=== PATIENT | female | born 2000 | race Caucasian/White ===

== ENCOUNTER 2020-06-16 03:54 | Emergency (ER) | payer BC ==
[~2020-06-16] VITALS: Ht 165.1 cm; Wt 72.6 kg
[2020-06-16] MEDS ORDERED: LORATADINE (CLARITIN) 10 MG TAB PO ONE (05:00)
[2020-06-16] MEDS ORDERED: FAMOTIDINE 20 MG (PEPCID) TABLET PO ONE (05:00)
[2020-06-16] MEDS ORDERED: FAMOTIDINE 20MG/2ML IV (PEPCID) IVP ONE (05:00)
--- NOTE | 2020-06-16 05:01 | ED Integumentary General ---
General Chief Complaint: Allergic Reaction Stated Complaint: HIVES Nursing Triage Note: TO ED VIA POV AND AMBULATORY TO ROOM 3 WITH C/O HIVES TO ARMS AND LEGS THAT STARTED APPROX 1H COMPLIANCE DIRECTOR AND 10MIN COMPLIANCE DIRECTOR FELT LIKE MOUTH WAS SWELLING. NO ANTIHISTAMINES TAKEN COMPLIANCE DIRECTOR, DID NOT USE EPI PEN. Source: patient Exam Limitations: no limitations History of Present Illness Date Seen by Provider: Jun 16, 2020 Time Seen by Provider: 04:07 Initial Comments This 19-year-old young lady presents to the emergency room with concerns about hives that she developed about an hour ago. She had a sensation of throat/mouth swelling about 10 minutes prior to arrival that has now subsided. Hives also have been improving. She did not administer her EpiPen. 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 She denies any known exposure to tree nuts clear diet. Allergies and Home Medications Allergies Coded Allergies: tree nut (Verified Allergy, Unknown, 06/16/20) Patient Home Medication List Home Medication List Reviewed: Yes Review of Systems Review of Systems Constitutional: no symptoms reported EENTM: see HPI Respiratory: no symptoms reported Cardiovascular: no symptoms reported Gastrointestinal: no symptoms reported Musculoskeletal: no symptoms reported Skin: no symptoms reported Psychiatric/Neurological: No Symptoms Reported Endocrine: No Symptoms Reported Hematologic/Lymphatic: No Symptoms Reported Past Jzpzrym-Mjzshg-Mfugjj Hx Past Med/Social Hx: Reviewed Nursing Past Med/Soc Hx Patient Social History Alcohol Use: Occasionally Uses Smoking Status: Current Everyday Smoker Type Used: Electronic/Vapor Recent Infectious Disease Expo: No Past Medical History Surgeries: Yes Adenoidectomy, Tonsillectomy Respiratory: Yes Asthma Cardiac: No Neurological: No Genitourinary: No Gastrointestinal: No Musculoskeletal: No Endocrine: No HEENT: No Cancer: No Psychosocial: No Integumentary: No Blood Disorders: No Physical Exam Vital Signs Vital Signs - First Documented 06/16/20 06/16/20 04:03 05:10 Temp 36.2 Pulse 112 Resp 16 B/P (MAP) 142/101 (115) Pulse Ox 97 O2 Delivery Room Air Capillary Refill : Less Than 3 Seconds General Appearance: WD/WN, no apparent distress HEENT: PERRL/EOMI, normal ENT inspection, pharynx normal Neck: normal inspection Cardiovascular: regular rate, rhythm, no edema, no murmur Respiratory: lungs clear, normal breath sounds, no respiratory distress Extremities: normal inspection, no pedal edema Neurologic/Psychiatric: alert, normal mood/affect, oriented x 3 Skin: warm/dry, rash (A few very subtle scattered hives on the extremities) Progress/Results/Core Measures Results/Orders My Orders Orders - NEGRITA QUILES MD Loratadine Tablet (Claritin Tablet) (06/16/20 05:00) Famotidine Injection (Pepcid Injection) (06/16/20 05:00) Famotidine Tablet (Pepcid Tablet) (06/16/20 05:00) Vital Signs/I&O 06/16/20 06/16/20 04:03 05:10 Temp 36.2 36.2 Pulse 112 90 Resp 16 16 B/P (MAP) 142/101 (115) 106/77 (115) Pulse Ox 97 O2 Delivery Room Air Room Air Blood Pressure Mean: 115 Progress Progress Note : Progress Note Patient was monitored for a short while. She was given Pepcid and Claritin prior to departure. See discharge instructions for discussion. Departure Impression Primary Impression: Hives Disposition: 01 HOME, SELF-CARE Condition: Improved Departure-Patient Inst. Decision time for Depature: 04:59 Patient Instructions: Hives Add. Discharge Instructions: You may take a nondrowsy antihistamine such as Claritin (loratadine), Zyrtec (cetirizine), etc. daily. Keep Benadryl (diphenhydramine) on hand to take for exacerbations of hives. Take up to 50 mg every 4 hours as needed. All of these medications are available [id number]. If you have worsening symptoms despite using these medications or if you have potentially life-threatening reactions that include swelling of the lips, throat, or tongue, return to the emergency room or call 911. Try to identify potential triggers for your hives and avoid those exposures in the future. Call the ER with questions or concerns. All discharge instructions reviewed with patient and/or family. Voiced understanding. NEGRITA QUILES MD Jun 16, 2020 05:01
[2020-06-16 05:10] VITALS: BP 106/77
== END 2020-06-16 05:12 | disposition home or self-care (01) ==
LOC: ER 03:58
DX: L50.9 Urticaria, unspecified (principal); J45.909 Unspecified asthma, uncomplicated; F17.290 Nicotine dependence, other tobacco product, uncomplicated
CPT/HCPCS: 99283

== ENCOUNTER 2020-06-18 23:04 | Emergency (ER) | payer BC ==
[~2020-06-18] VITALS: Ht 167.7 cm; Wt 72.6 kg
[2020-06-18] MEDS ORDERED: FAMOTIDINE 20MG/2ML IV (PEPCID) IV STA (23:20)
[2020-06-18] MEDS ORDERED: diphenhydrAMINE 50 MG/ML INJ (BENADRYL) IV STA (23:20)
[2020-06-18] MEDS ORDERED: methylPREDNISolone 125 MG (Solu-MEDROL) VIAL IV STA (23:20)
[2020-06-18 23:32] LABS: BASOPHILS # (AUTO) 0.1 10^3/uL (0.0-0.1); BASOPHILS % (AUTO) 1 % (0-10); EOSINOPHILS # (AUTO) 0.3 10^3/uL (0.0-0.3); EOSINOPHILS % (AUTO) 3 % (0-10); HEMATOCRIT 42 % (35-52); HEMOGLOBIN 13.6 g/dL (11.5-16.0); LYMPHOCYTES # (AUTO) 1.8 10^3/uL (1.0-4.0); LYMPHOCYTES % (AUTO) 24 % (12-44); MEAN CORPUSCULAR HEMOGLOBIN 27 pg (25-34); MEAN CORPUSCULAR HGB CONC 33 g/dL (32-36); MEAN CORPUSCULAR VOLUME 84 fL (80-99); MEAN PLATELET VOLUME 11.3 fL (9.0-12.2); MONOCYTES # (AUTO) 0.4 10^3/uL (0.0-1.0); MONOCYTES % (AUTO) 6 % (0-12); NEUTROPHILS % (AUTO) 66 % (42-75); PLATELET COUNT 224 10^3/uL (130-400); WHITE BLOOD COUNT 7.6 10^3/uL (4.3-11.0)
--- NOTE | 2020-06-18 23:32 | ED Integumentary General ---
General Stated Complaint: HIVES ALL OVER Source: patient History of Present Illness Date Seen by Provider: Jun 18, 2020 Time Seen by Provider: 23:18 Initial Comments PT ARRIVES VIA POV FROM HOME C/O GENERALIZED HIVES SINCE EARLY TUESDAY MORNING WAS AT A "FRAT FORMAL" AT [facility] ALL WEEKEND--TUESDAY THROUGH TUESDAY NIGHT HAD FOOD AND LOTS OF DRINKS SHE HAD NEVER HAD BEFORE, DRINKING FROM OTHER PEOPLE'S DRINKS, ETC. PT LIVES IN AN APARTMENT WITH ROOM MATES, BUT CLAIMS SHE HAS NOT HAD ANYTHING NEW SINCE TUESDAY NO SWELLING ANYWHERE NO DIFFICULTY BREATHING OR TALKING OR SWALLOWING NO DIZZINESS OR SYNCOPE SEEN HERE EARLY ON TUESDAY MORNING FOR THIS PROBLEM--TOLD TO TAKE CLARITIN AND BENADRYL STATES HIVES HAVE CONTINUED, AND WENT TO [facility] TODAY, AND WAS TOLD TO TAKE CLARITIN STATES SHE HAD HIVES WHEN SHE WAS VERY YOUNG, BUT NO PROBLEMS FOR MANY YEARS PT HAS ASTHMA, BUT HAS NOT HAD TO USE INHALER FOR A VERY LONG TIME. PT HAS AN ALLERGY TO TREE NUTS, AND HAS AN EPI PEN, BUT HAS NOT USED IT. [facility] [place] Allergies and Home Medications Allergies Coded Allergies: tree nut (Verified Allergy, Unknown, 06/16/20) Home Medications Famotidine 40 Mg Tablet, 40 MG PO DAILY Prescribed by: ALBINO RAHMAN on 06/18/202335 Prednisone 20 Mg Tab, 40 MG PO DAILY Prescribed by: ALBINO RAHMAN on 06/18/202335 Patient Home Medication List Home Medication List Reviewed: Yes Review of Systems Review of Systems Constitutional: no symptoms reported EENTM: no symptoms reported Respiratory: no symptoms reported Cardiovascular: no symptoms reported Gastrointestinal: no symptoms reported; No nausea, No vomiting Genitourinary: decreased output LMP: Jun 18, 2020 Musculoskeletal: no symptoms reported Skin: see HPI, pruritus, rash Psychiatric/Neurological: No Symptoms Reported Endocrine: No Symptoms Reported Hematologic/Lymphatic: No Symptoms Reported Past Uiadbyu-Zjnbja-Junpqn Hx Past Med/Social Hx: Reviewed and Corrections made Patient Social History Alcohol Use: Occasionally Uses Drug of Choice: THC IN PAST Smoking Status: Current Everyday Smoker Type Used: Electronic/Vapor Substance type: Marijuana Past Medical History Surgeries: Yes Adenoidectomy, Tonsillectomy Respiratory: Yes Asthma Cardiac: No Neurological: No : No Genitourinary: No Gastrointestinal: No Musculoskeletal: No Endocrine: No HEENT: Yes (S/P TONSILLECTOMY/ADENOIDECTOMY) Tonsilitis Cancer: No Psychosocial: No Integumentary: No Blood Disorders: No Family Medical History SOCIAL HISTORY: -ETOH "ON WEEKENDS" -DRUGS--MARIJUANA "IN THE PAST" -SMOKES "ON WEEKENDS" Physical Exam Vital Signs Vital Signs - First Documented 06/18/20 23:15 Temp 36.7 Pulse 105 Resp 18 B/P (MAP) 133/96 (108) Pulse Ox 98 O2 Delivery Room Air Capillary Refill : General Appearance: WD/WN, no apparent distress HEENT: PERRL/EOMI, normal ENT inspection Neck: normal inspection Cardiovascular: regular rate, rhythm, no murmur Respiratory: normal breath sounds, no respiratory distress, no accessory muscle use Gastrointestinal: non tender, soft Extremities: normal inspection Neurologic/Psychiatric: counseling program leader II-XII nml as tested, no motor/sensory deficits, alert, normal mood/affect, oriented x 3 Skin: normal color, rash (DIFFUSE HIVES ON ARMS., LEGS, TRUNK, ? MILD RASH ON FACE ?--HANDS/FEET/SCALP ARE SPARED. ) Progress/Results/Core Measures Results/Orders Lab Results Laboratory Tests Test 06/18/20 23:25 Range/Units White Blood Count 7.6 4.3-11.0 10^3/uL Red Blood Count 4.97 3.80-5.11 10^6/uL Hemoglobin 13.6 11.5-16.0 g/dL Hematocrit 42 35-52 % Mean Corpuscular Volume 84 80-99 fL Mean Corpuscular Hemoglobin 27 25-34 pg Mean Corpuscular Hemoglobin Concent 33 32-36 g/dL Red Cell Distribution Width 12.4 10.0-14.5 % Platelet Count 224 130-400 10^3/uL Mean Platelet Volume 11.3 9.0-12.2 fL Immature Granulocyte % (Auto) 0 % Neutrophils (%) (Auto) 66 42-75 % Lymphocytes (%) (Auto) 24 12-44 % Monocytes (%) (Auto) 6 0-12 % Eosinophils (%) (Auto) 3 0-10 % Basophils (%) (Auto) 1 0-10 % Neutrophils # (Auto) 5.0 1.8-7.8 10^3/uL Lymphocytes # (Auto) 1.8 1.0-4.0 10^3/uL Monocytes # (Auto) 0.4 0.0-1.0 10^3/uL Eosinophils # (Auto) 0.3 0.0-0.3 10^3/uL Basophils # (Auto) 0.1 0.0-0.1 10^3/uL Immature Granulocyte # (Auto) 0.0 0.0-0.1 10^3/uL Sodium Level 138 135-145 MMOL/L Potassium Level 3.5 L 3.6-5.0 MMOL/L Chloride Level 104 98-107 MMOL/L Carbon Dioxide Level 24 21-32 MMOL/L Anion Gap 10 5-14 MMOL/L Blood Urea Nitrogen 11 7-18 MG/DL Creatinine 0.86 0.60-1.30 MG/DL Estimat Glomerular Filtration Rate > 60 BUN/Creatinine Ratio 13 Glucose Level 105 70-105 MG/DL Calcium Level 9.5 8.5-10.1 MG/DL Corrected Calcium 9.1 8.5-10.1 MG/DL Total Bilirubin 1.3 H 0.1-1.0 MG/DL Aspartate Amino Transf (AST/SGOT) 15 5-34 U/L Alanine Aminotransferase (ALT/SGPT) 13 0-55 U/L Alkaline Phosphatase 83 40-136 U/L Total Protein 8.0 6.4-8.2 GM/DL Albumin 4.5 3.2-4.5 GM/DL Serum Test, Qualitative NEGATIVE NEGATIVE My Orders Orders - ALBINO RAHMAN DO Ed Iv/Invasive Line Start (06/18/20 23:20) Cbc With Automated Diff (06/18/20 23:20) Comprehensive Metabolic Panel (06/18/20 23:20) Hcg,Qualitative Serum (06/18/20 23:20) Famotidine Injection (Pepcid Injection) (06/18/20 23:20) Diphenhydramine Injection (Benadryl Inje (06/18/20 23:20) Methylprednisolone Sod Succ (Solu-Medrol (06/18/20 23:20) Vital Signs/I&O 06/18/20 06/19/20 23:15 00:39 Temp 36.7 Pulse 105 86 Resp 18 18 B/P (MAP) 133/96 (108) 125/90 (108) Pulse Ox 98 99 O2 Delivery Room Air Progress Progress Note : Progress Note GIVEN BENADRYL, PEPCID, AND SOLU-MEDROL ITCHING HAS RESOLVED AND HIVES ARE FADING. Departure Impression Primary Impression: Hives Disposition: 01 HOME, SELF-CARE Condition: Stable Departure-Patient Inst. Referrals: [facility] (PCP/Family) Primary Care Physician Patient Instructions: Hives (DC) Add. Discharge Instructions: LOTS OF CLEAR LIQUIDS AVOID ANY NEW FOODS, DRINKS, PRODUCTS, ETC KEEP A DIARY OF EVERY THING YOU EAT, DRINK OR PUT IN YOUR MOUTH TAKE CLARITIN 10 MG 1-2 TIMES A DAY FOLLOW UP WITH [facility] IN 1-2 DAYS IF NO BETTER, RETURN TO ER IF WORS USE YOUR EPI-PEN IF YOU DEVELOP DIFFICULTY BREATHING OR SWELLING OF YOUR TONGUE OR THROAT, AND COME TO ER Scripts Famotidine (Pepcid) 40 Mg Tablet 40 MG PO DAILY, #10 TAB Prov: ALBINO RAHMAN DO 06/18/20 Prednisone (Prednisone) 20 Mg Tab 40 MG PO DAILY, #6 TAB 0 Refills Prov: ALBINO RAHMAN DO 06/18/20 ALBINO RAHMAN DO Jun 18, 2020 23:32
[2020-06-18] MEDS ORDERED: FAMO40TA72 PO (23:36)
[2020-06-18] MEDS ORDERED: PRD20T PO (23:36)
[2020-06-18 23:54] LABS: ALANINE AMINOTRANSFERASE 13 U/L (0-55); ALBUMIN 4.5 GM/DL (3.2-4.5); ALKALINE PHOSPHATASE 83 U/L (40-136); BILIRUBIN,TOTAL 1.3 MG/DL (0.1-1.0); BUN/CREATININE RATIO 13; CALCIUM 9.5 MG/DL (8.5-10.1); CARBON DIOXIDE 24 MMOL/L (21-32); CHLORIDE 104 MMOL/L (98-107); CREATININE SERUM 0.86 MG/DL (0.60-1.30); GFR ESTIMATED > 60; GLUCOSE 105 MG/DL (70-105); POTASSIUM 3.5 MMOL/L (3.6-5.0); SODIUM 138 MMOL/L (135-145)
[2020-06-19 00:39] VITALS: BP 125/90
== END 2020-06-19 00:40 | disposition home or self-care (01) ==
LOC: EDUNIT# 23:04 → ER 23:07
DX: L50.9 Urticaria, unspecified (principal); J45.909 Unspecified asthma, uncomplicated; F17.290 Nicotine dependence, other tobacco product, uncomplicated; Z79.52 Long term (current) use of systemic steroids
CPT/HCPCS: 36415; 80053; 84703; 85025

== ENCOUNTER → 2020-11-24 | Outpatient (CLI) | payer BC ==
[~2020-11-24] MED LIST: CATHETER FLUSH 10 ML SYR IV PRN; FAMO40TA72 PO; HOLD METFORMIN - RECEIVED CONTRAST 20 ML VIAL IV SCH; IOHEXOL 350 MG/ML 100 ML (OMNIPAQUE 350) VIAL IV ONE; NS 100 ML (IVPB) BAG IV ONE; PRD20T PO
--- NOTE | 2020-11-24 17:16 | Diagnostic Imaging Report ---
PROCEDURE: CT neck soft tissue with contrast. TECHNIQUE: Multiple contiguous axial images were obtained through the neck after the administration of contrast. Auto Exposure Controls were utilized during the CT exam to meet ALARA standards for radiation dose reduction. INDICATION: Lymphadenopathy. COMPARISON: None. FINDINGS: The cervical lymph nodes throughout the neck are diffusely enlarged, left greater than right. For example, the jugulodigastric lymph node on the left measures up to 2.0 cm in short axis dimension. A left level 2 lymph node measures up to 1.5 cm in short axis dimension. No necrotic lymph nodes are identified. The floor of the mouth, tongue base, epiglottis and retropharyngeal space are normal. No suspicious mass or enhancement within the pharynx or larynx. No fluid collections in the neck. The thyroid and major salivary glands are negative. Major vessels in the neck are grossly patent. No acute osseous findings. The lung apices are clear. Visualized intracranial contents are negative. Mild mucosal thickening in the left maxillary sinus. The mastoids are clear. IMPRESSION: Diffusely prominent lymph nodes throughout the neck, left greater than right. The largest lymph node measures up to 2.0 cm in short axis dimension. No necrotic lymph nodes are identified. These findings are nonspecific and could be infectious, inflammatory, metastatic, or lymphoma. No primary malignancy in the neck or fluid collection is identified. Dictated by: Dictated on workstation # [id number]
== END ==
LOC: RAD 16:12
PROVIDERS: ATTEND Nurse Practitioner Family
DX: R59.1 Generalized enlarged lymph nodes (principal)
CPT/HCPCS: 70491

== ENCOUNTER → 2020-11-26 | Day surgery (SDC) | payer BC ==
[~2020-11-26] VITALS: Ht 165.1 cm; Wt 70.5 kg
[~2020-11-26] MED LIST changes: -CATHETER FLUSH 10 ML SYR IV PRN; -HOLD METFORMIN - RECEIVED CONTRAST 20 ML VIAL IV SCH; -IOHEXOL 350 MG/ML 100 ML (OMNIPAQUE 350) VIAL IV ONE; +LIDOCAINE 1% INJ 20 ML 20 ML VIAL INJ ONE; -NS 100 ML (IVPB) BAG IV ONE
--- NOTE | 2020-11-26 13:59 | Diagnostic Imaging Report ---
INDICATION: Neck lymphadenopathy. Patient presents for ultrasound-guided biopsy. Patient was brought to the procedure room and placed on the table in the supine position. Ultrasound imaging of the left neck was performed to evaluate appropriate entry site. Left neck was then prepped and draped in the usual sterile fashion. A small amount of 1% lidocaine was utilized for local anesthesia. A total of four core biopsies were obtained of the dominant lymph node in the left neck utilizing an 18-gauge Temno needle. A single pass was made for flow cytometry. Hemostasis was obtained using manual compression. Patient tolerated the procedure well and left the department in stable condition. IMPRESSION: Successful ultrasound-guided core biopsy of the dominant left neck lymph node, as described. Pathology results are currently pending. Dictated by: Dictated on workstation # [id number]
== END ==
LOC: RAD 12:19
PROVIDERS: ATTEND Internal Medicine
DX: R59.0 Localized enlarged lymph nodes (principal)
CPT/HCPCS: 76942; 88184; 88185; 88307; 88341; 88342; 88365